=== PATIENT | female | born 1985 | race Caucasian/White ===

== ENCOUNTER 2018-09-17 09:58 | Emergency (ER) | payer OTHER ==
[2018-09-17 10:12] VITALS: BP 130/93
[2018-09-17] MEDS ORDERED: DEXAMETHASONE 10 MG/ML VIAL PO STA (10:29)
[2018-09-17] MEDS ORDERED: IPRATROPIUM/ALBUTEROL 3 ML NEB INH STA (10:29)
[2018-09-17] MEDS ORDERED: IBUPROFEN 800 MG TABLET PO STA (10:30)
--- NOTE | 2018-09-17 10:36 | ED Physician Documentation ---
PD HPI URI - Stated complaint Stated Complaint: CONGESTION/COUGHING - Chief complaint Chief Complaint: Heent - History obtained from History obtained from: Patient - History of Present Illness Timing - onset: How many days ago (3) Timing duration: Days (3) Timing details: Gradual onset Pain level max: 6 Pain level now: 4 Associated symptoms: Fever, Chills, Nasal congestion, Rhinorrhea, Dry cough. 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 - Present Medications Home Medications: Ambulatory Orders Medication Instructions Recorded Confirmed Ondansetron Odt [Zofran] 4 mg TL Q6H PRN #10 tablet 09/17/18 Venlafaxine HCl [Venlafaxine HCl 225 mg PO DAILY 09/17/18 09/17/18 ER] predniSONE [Prednisone] 40 mg PO DAILY #10 tablet 09/17/18 - Allergies Allergies/Adverse Reactions: Allergies Allergy/AdvReac Type Severity Reaction Status Date / Time codeine Allergy Hives Verified 09/17/18 10:13 - Social History Does the pt smoke?: No Smoking Status: Never smoker PD ED PE NORMAL - Vitals Vital signs reviewed: Yes - General General: Alert and oriented X 3, No acute distress, Well developed/nourished - HEENT HEENT: Moist mucous membranes - Neck Neck: Supple, no meningeal sign - Cardiac Cardiac: RRR - Respiratory Respiratory: No respiratory distress, Other (Diffuse wheezing bilaterally) - Abdomen Abdomen: Soft, Non tender, Non distended - Derm Derm: Warm and dry, No rash - Extremities Extremities: No edema, No calf tenderness / cord - Neuro Neuro: Alert and oriented X 3 - Psych Psych: Normal mood, Normal affect Results - Vitals Vitals: Vital Signs - 24 hr 09/17/18 09/17/18 10:11 10:41 Temperature 37.1 C Heart Rate 98 104 H Respiratory 18 20 Rate Blood Pressure 130/93 H O2 Saturation 100 Oxygen O2 Source Room air PD MEDICAL DECISION MAKING - ED course Complexity details: re-evaluated patient, considered differential, d/w patient ED course: 33-year-old female with what appears to be influenza A. Rampant within the community currently.Patient is very well-appearing, nontoxic. Feels better after nebulizer treatment. Will continue supportive care and follow-up with her doctor. No hypoxia. No respiratory distress. Patient counseled regarding signs and symptoms for which I believe and urgent re-evaluation would be necessary. Patient with good understanding of and agreement to plan and is comfortable going home at this time This document was made in part using voice recognition software. While efforts are made to proofread this document, sound alike and grammatical errors may occur. Departure - Departure Disposition: 01 Home, Self Care Clinical Impression: Influenza Condition: Good Instructions: ED Flu Follow-Up: your,doctor in 1 week if not better [Other] Prescriptions: Ondansetron Odt [Zofran] 4 mg TL Q6H PRN #10 tablet PRN Reason: Nausea / Vomiting predniSONE [Prednisone] 40 mg PO DAILY #10 tablet Comments: Continue to use your inhaler at home. Return if you worsen. Use the spacer to help your inhaler work better. Drink plenty of fluids and rest. Discharge Date/Time: 09/17/18 11:08
== END 2018-09-17 11:08 | disposition home or self-care (01) ==
LOC: ED 09:58
DX: J11.1 Influenza due to unidentified influenza virus with other respiratory manifestations (principal)
CPT/HCPCS: 94640; 94664; 99283; A9270

== ENCOUNTER 2021-07-16 08:43 | Outpatient (CLI) | payer OTHER ==
--- NOTE | 2021-07-17 11:30 | Mammography Report ---
BILATERAL DIGITAL DIAGNOSTIC MAMMOGRAM 3D/2D: 07/16/2021 CLINICAL: Palpable right breast lump. No prior exams were available for comparison. The tissue of both breasts is heterogeneously dense. This may lower the sensitivity of mammography. No significant masses, calcifications, or other findings are seen in either breast. Specifically, no finding to correspond to the patient's palpable abnormality. IMPRESSION: INCOMPLETE: NEEDS ADDITIONAL IMAGING EVALUATION There are no abnormalities seen in the right breast or in the right axilla to correspond with the pal pable abnormalities at 9 to 10 o'clock and in the right axilla. Ultrasound is recommended for full e valuation of these areas. This was performed immediately following this exam. This exam was interpreted at Station ID: [id number]. NOTE: For mammograms, a report in lay terms will be sent to the patient. Approximately 15% of breast malignancies will not be visualized mammographically. In the management of a palpable breast mass, a negative mammogram must not discourage biopsy of a clinically suspicious lesion. Electronically Signed By: Vivian evangelista/:07/16/2021 09:43:14 ACR BI-RADS Category 0: Incomplete 3340F PARENCHYMAL PATTERN: (D) - The breast(s) demonstrate(s) heterogeneously dense fibroglandular parenchy ma. BI-RADS CATEGORY: (0) - 0 Ultrasound [id number] Immediate follow-up LATERALITY: (B)
--- NOTE | 2021-07-17 11:30 | Ultrasound Report ---
LIMITED ULTRASOUND OF RIGHT BREAST AND AXILLA: 07/16/2021 CLINICAL: Palpable right breast lump. Palpable right axilla lump. Comparison is made to exam dated: 07/16/2021 mammogram - [facility]. Color flow and real-time ultrasound of the right breast 10 o'clock, and axilla regions were performed . Stoddard scale images of the real-time examination were reviewed. There is a decompressed sebaceous cyst in the right axilla that correlates with one palpable abnormal ity. No significant abnormalities were seen sonographically in the right breast. Specifically, no finding to correspond to the patient's 9-10:00 palpable abnormality. There is dense fibroglandular tissue di ffusely. IMPRESSION: NEGATIVE There is no sonographic correlate to the patient's right breast palpable abnormality and no evidence of malignancy. A 2 year screening mammogram is recommended. Findings and recommendations were conveyed to the patient at time of exam. This exam was interpreted at Station ID: [id number]. Electronically Signed By: Vivian evangelista/:07/16/2021 10:19:48 Ultrasound BI-RADS: 1 Negative BI-RADS CATEGORY: (1) - 1 Mammogram [id number] 2 year screening LATERALITY: (B)
== END 2021-07-16 08:44 | disposition home or self-care (01) ==
LOC: DI 08:43
PROVIDERS: ATTEND Student in an Organized Health Care Education/Training Program
DX: N63.11 Unspecified lump in the right breast, upper outer quadrant (principal)

== ENCOUNTER 2022-05-06 08:00 | Outpatient (CLI) | payer OTHER ==
--- NOTE | 2022-05-06 14:22 | XRAY Report ---
PROCEDURE: Ankle 3 View LT INDICATIONS: LEFT ANKLE PAIN TECHNIQUE: 3 views of the ankle were acquired. COMPARISON: None FINDINGS: Bones: No fractures or dislocations. Ankle mortise is normally aligned. No suspicious bony lesions . Soft tissues: Lateral malleolar edema. Achilles tendon appears normal. IMPRESSION: Lateral malleolar edema. No visualized acute fracture or dislocation. However, occult in jury cannot be excluded. Recommend short interval imaging follow-up in 7-10 days as clinically indica pawel for additional evaluation. Reviewed by: Yolanda Covington MD on 05/06/2022 2:21 PM PDT Approved by: Yolanda Covington MD on 05/06/2022 2:21 PM PDT Station ID: [id number]
== END 2022-05-06 23:59 | disposition home or self-care (01) ==
LOC: DI.N 08:00
PROVIDERS: ATTEND Physician Assistant Medical
DX: S99.812A Other specified injuries of left ankle, initial encounter (principal); R60.0 Localized edema

== ENCOUNTER 2023-07-11 10:18 | Outpatient (CLI) | payer OTHER ==
--- NOTE | 2023-07-11 15:35 | MRI Report ---
PROCEDURE: HIP WO - RT INDICATIONS: HIP PAIN TECHNIQUE: Noncontrast coronal T1 spin echo and STIR through the bony pelvis. Coronal and axial T2 fast spin ec ho with fat saturation, sagittal T1 spin echo, and oblique axial T2 fast spin echo with fat saturatio n through the hip. COMPARISON: None. FINDINGS: Image quality: Excellent. Bones and joints: There is no marrow edema. No fracture or dislocation. No avascular necrosis of the femoral heads. The visualized lower lumbar spine appears normally aligned. Tendons: Mild tendinosis and low-grade partial-thickness tear involving distal right gluteus medius t endon at its insertion on greater trochanter. Mild distal right gluteus minimus tendinosis is also se en. The iliopsoas tendon appears intact, without adjacent bursal fluid collections. Mild tendinosis i nvolving origins of right hamstring tendons at ischial tuberosity is noted. Labrum and cartilage: The acetabular labrum appears intact in the absence of intra-articular contras t. Cartilage surface of the femoral head appears of normal thickness. The alpha angle of the femur is within normal limits at less than 55 degrees. Soft tissues: Visualized muscles demonstrate normal bulk and internal signal. The proximal sciatic neurovascular bundle appears normal adjacent to the hamstring tendons. No free pelvic fluid. Bladde r wall thickness is normal. Genitourinary structures and bowel loops appear normal where visualized. IMPRESSION: 1. No marrow edema. No pelvic or hip fracture. No hip dislocation. No evidence of avascular necrosis. 2. Low-grade partial-thickness tear involving distal right gluteus medius tendon at its insertion on greater trochanter. Distal right gluteus minimus tendinosis. Tendinosis also seen involving right ham string tendon origins at ischial tuberosity. 3. No definite focal right hip labral tear. Reviewed by: Franck Mcmullen MD on 07/11/2023 3:34 PM PST Approved by: Franck Mcmullen MD on 07/11/2023 3:34 PM PST Station ID: [id number]
== END 2023-07-11 10:19 | disposition home or self-care (01) ==
LOC: DI 10:18
PROVIDERS: ATTEND Student in an Organized Health Care Education/Training Program
DX: S76.011A Strain of muscle, fascia and tendon of right hip, initial encounter (principal)